=== PATIENT | male | born 1955 | race Caucasian/White ===

== ENCOUNTER 2017-09-02 15:52 | Emergency (ER) | payer MEDICARE ==
[~2017-09-02] VITALS: Ht 185.4 cm; Wt 68.5 kg
[~2017-09-02 15:52] MED LIST: AMOX1TAB61 PO; DIAZ10TA4 PO; ENOX40SY4 SQ; FOLI-17 PO; FURO-93 PO; GABA300C10 PO; HYDR2TAB29 PO; LACT10SO28 PO; OMEP-110 PO; OXYC5CAP2 PO; POTA20TA91 PO; SPIR50TA2 PO; TEMA30CA PO; THIA100T10 PO
[2017-09-02 16:30] VITALS: BP 101/63
== END 2017-09-02 18:59 | disposition home or self-care (01) ==
LOC: ED 18:53
DX: S70.02XA Contusion of left hip, initial encounter (principal); E11.9 Type 2 diabetes mellitus without complications; M51.36 Other intervertebral disc degeneration, lumbar region; Z89.512 Acquired absence of left leg below knee; Z99.3 Dependence on wheelchair; W19.XXXA Unspecified fall, initial encounter; Y93.89 Activity, other specified; Y99.8 Other external cause status; Y92.89 Other specified places as the place of occurrence of the external cause
CPT/HCPCS: 72110; 99284